=== PATIENT | female | born 1935 | race Caucasian/White ===

== ENCOUNTER 2017-11-08 02:15 | Emergency (ER) | payer MEDICARE, OTHER ==
[~2017-11-08 02:15] MED LIST: LORA-392 PO; LORTA5 PO; OXYBXL10 PO; PREG75 PO; TRIH2 PO; VITA100018 PO; ZOVI800T13 PO
[2017-11-08 02:20] VITALS: BP_SYST 137; PULSE 78; RESP 22; TEMP 98.5; O2SAT 99
[2017-11-08] MEDS ORDERED: ONDANSETRON HCL 4 MG/2 ML VIAL IV PUSH ONE (02:30)
[2017-11-08] MEDS ORDERED: MORPHINE SULFATE 2 MG/ML INJ IV PUSH ONE (02:30)
--- NOTE | 2017-11-08 02:37 | PD ---
HPI Chief Complaint: Musculoskeletal Complaint Time Seen by Provider: 02:30 Travel History International Travel<30 days: No Contact w/Intl Traveler<30days: No Traveled to known affect area: No History of Present Illness HPI 82-year-old female presents to the emergency department by EMS transport from home for bilateral hip pain. According to the patient 2 days ago showed a non- syncopal slip and fall landing on her buttock. Patient experienced bilateral hip pain at that time right worse than left. Patient was able to get up and ambulate subsequently with her walker. Patient denies uses a walker for ambulation. Reportedly over the last 48 hours symptoms have worsened. Patient complains of severe pain affecting her right hip. Patient has a 24-hour caregiver and repeatedly asked her caregiver because she is afraid to be alone. Patient is very anxious. Patient is a . Patient has Parkinson's disease. Patient tried to take ibuprofen prior to arrival to the emergency department reportedly but was unable to swallow the pills that she was so upset. PFSH Past Medical History Narrative Medical Anemia arthritis Parkinson's disease thoracic compression fracture old sacral fracture anxiety disorder; no tobacco use; nursing notes reviewed Hx Anticoagulant Therapy: No Arthritis: Yes Asthma: No Autoimmune Disease: No Anxiety: Yes ('S HEALTH ) Depression: No Heart Rhythm Problems: No Cancer: No Cardiovascular Problems: No High Cholesterol: No Chemotherapy: No Chest Pain: No Congestive Heart Failure: No COPD: No Cerebrovascular Accident: No Diabetes: No Endocrine: No GERD: No Genitourinary: No Hiatal Hernia: No Immune Disorder: No Kidney Stones: No Musculoskeletal: Yes Neurologic: Yes (TREMORS RIGHT HAND, PARKINSON) Parkinson's Disease: Yes Psychiatric: No Reproductive: No Respiratory: No Immunizations Current: Yes Migraines: No Radiation Therapy: No Renal Failure: No Seizures: No Sickle Cell Disease: No Sleep Apnea: No Thyroid Disease: No Ulcer: No Menopausal: Yes : 4 Para: 4 Past Surgical History Abdominal Surgery: No AICD: No Arteriovenous Shunt: No Cardiac Surgery: No Ear Surgery: No Endocrine Surgery: No Eye Surgery: No Genitourinary Surgery: No Gynecologic Surgery: Yes (D&C) Hysterectomy: No Insulin Pump: No Joint Replacement: No Oral Surgery: No Pacemaker: No Thoracic Surgery: No Other Surgery: Yes Social History Alcohol Use: No Tobacco Use: No Substance Use: No Allergies-Medications (Allergen,Severity, Reaction): Coded Allergies: *MDRO Multi-Drug Resistant Organism (Verified Adverse Reaction, Unknown, ) E. coli ESBL (urine) - 10/2014 Reported Meds & Prescriptions Reported Meds & Active Scripts Active Percocet (Oxycodone-Acetaminophen) 5-325 mg Tab 0.5-1 Tab PO Q6H PRN Zofran Odt (Ondansetron Odt) 4 Mg Tab 4 Mg SL Q6HR PRN Reported Trihexyphenidyl (Trihexyphenidyl HCl) 2 Mg Tab 2 Mg PO BID Ativan (Lorazepam) 0.5 Mg Tab 0.5 Mg PO Q6H PRN Review of Systems Except as stated in HPI: all other systems reviewed are Neg Physical Exam Narrative GENERAL: Elderly female with tremor appears anxious sitting upright on exam stretcher asking repetitively for her 24-hour [employer] [place] SKIN: Warm and dry. HEAD: Normocephalic. Atraumatic. EYES: No scleral icterus. No injection or drainage. NECK: Supple, trachea midline. No JVD or lymphadenopathy. CARDIOVASCULAR: Regular rate and rhythm without murmurs, gallops, or rubs. RESPIRATORY: Breath sounds equal bilaterally. No accessory muscle use. GASTROINTESTINAL: Abdomen soft, non-tender, nondistended. MUSCULOSKELETAL: No cyanosis, or edema. No external or internal rotation and shortening, left lower extremity able to perform hip flexion and knee flexion and dorsalis pedis pulses 2+ to palpation right lower extremity has limited hip flexion he flexion secondary to pain. BACK: Nontender without obvious deformity. No CVA tenderness. Data Data Last Documented VS Vital Signs Date Time Temp Pulse Resp B/P (MAP) Pulse Ox O2 Delivery O2 Flow Rate FiO2 11/08/17 03:30 74 16 98/64 (75) 97 Room Air 11/08/17 02:20 98.5 Orders Orders Hip, Uni(Ap&Lat) W Ap Pelvis (11/08/17 ) ^ Saline Lock (11/08/17 02:30) Ondansetron Inj (Zofran Inj) (11/08/17 02:30) Morphine Inj (Morphine Inj) (11/08/17 02:30) Ketorolac Inj (Toradol Inj) (11/08/17 04:00) Ed Discharge Order (11/08/17 03:50) MDM Medical Decision Making Medical Screen Exam Complete: Yes Emergency Medical Condition: Yes Medical Record Reviewed: Yes Interpretation(s) right hip and pelvis xr: FINDINGS: No fracture is seen. The right hip joint is normally aligned. There is narrowing of the left hip joint. The bones are osteopenic. CONCLUSION: No fracture is seen. Derek Treviño MD on November 08, 2017 at 3:27 Board Certified Radiologist. This report was verified electronically. Differential Diagnosis Contusion fracture subluxation Narrative Course IV access obtained imaging studies ordered patient administered Zofran 4 mg IV and morphine sulfate 2 mg IV Patient remains anxious caregivers are at bedside patient informed of imaging results and is stable for outpatient management. Pain is improved. Sepsis Criteria SIRS Criteria (2 or more): WBC > 59055, < 4000 or > 10% bands Diagnosis Primary Impression: Contusion of hip, right Qualified Codes: S70.01XA - Contusion of right hip, initial encounter Additional Impression: Contusion of left hip Qualified Codes: S70.02XA - Contusion of left hip, initial encounter Referrals: Primary Care Physician call for appointment Patient Instructions: General Instructions, Narcotic given in the ED Additional Instructions: Follow-up with your primary care provider call office in a.m. to schedule follow -up appointment Return to the emergency department as needed May take ibuprofen/Advil/Motrin as tolerated 400 mg as often as every 6 hours to 8 hours for pain associated with inflammation May use moist heat to the areas for comfort purposes Prescription narcotic Percocet baby taken half tablet or 1 tablet as often as every 6 hours as needed for severe pain greater than 5/10 in intensity; be aware that narcotics can increased risk for fall, impaired judgment, and cause constipation (may take stool softener if using narcotic pain medication). Take medication as prescribed as needed for nausea and/or vomiting Increase fluid hydration Med/Other Pt SpecificInfo: Prescription(s) given Scripts Oxycodone-Acetaminophen (Percocet) 5-325 mg Tab 0.5-1 TAB PO Q6H Y for PAIN, #7 TAB 0 Refills Prov: Beatriz Sheth MD 11/08/17 Ondansetron Odt (Zofran Odt) 4 Mg Tab 4 MG SL Q6HR Y for Nausea/Vomiting, #10 TAB 0 Refills Prov: Beatriz Sheth MD 11/08/17 Disposition: 01 DISCHARGE HOME Condition: Stable Beatriz Sheth MD Nov 08, 2017 02:36
[2017-11-08] MEDS ORDERED: LORA-392 PO (02:53)
[2017-11-08] MEDS ORDERED: TRIH2 PO (02:53)
[2017-11-08 03:30] VITALS: BP 98/64; PULSE 74; RESP 16; O2SAT 97
--- NOTE | 2017-11-08 03:32 | RADRPT ---
EXAM DATE/TIME: 11/08/2017 02:42 [facility] COMPARISON: No previous studies available for comparison. INDICATIONS : Trauma, fall. Right hip pain. MEDICAL HISTORY : None. SURGICAL HISTORY : None. ENCOUNTER: Initial ACUITY: 1 day PAIN SCORE: 8/10 LOCATION: Right hip. FINDINGS: No fracture is seen. The right hip joint is normally aligned. There is narrowing of the left hip join t. The bones are osteopenic. CONCLUSION: No fracture is seen. Derek Treviño MD on November 08, 2017 at 3:27 Board Certified Radiologist. This report was verified electronically.
[2017-11-08] MEDS ORDERED: PERC5TAB12 PO (03:41)
[2017-11-08] MEDS ORDERED: ZOFR4TAB3 SL (03:41)
[2017-11-08] MEDS ORDERED: KETOROLAC TROMETHAMINE 30 MG/ML (IVP) VIAL IV PUSH ONE (04:00)
[2017-11-08 04:23] VITALS: BP 99/57
[2017-11-13] MEDS ORDERED: OXYC1TAB36 PO (10:20)
[2017-11-13] MEDS ORDERED: LACT10SO PO (10:20)
[2017-11-13] MEDS ORDERED: HOSP BED1 (10:22)
== END 2017-11-08 04:25 | disposition home or self-care (01) ==
LOC: PHED 02:15
DX: S70.01XA Contusion of right hip, initial encounter (principal); S70.02XA Contusion of left hip, initial encounter; G20 Parkinson's disease; F41.9 Anxiety disorder, unspecified; W01.0XXA Fall on same level from slipping, tripping and stumbling without subsequent striking against object, initial encounter
CPT/HCPCS: 73502; 96374; 96375; 99284; J1885; J2270; J2405

== ENCOUNTER 2017-11-17 08:49 | Inpatient (IN) | payer MEDICARE, OTHER ==
[2017-11-17] VITALS (7 sets, daily range): BP systolic 122–148; BP diastolic 65–76; PULSE 69–98; RESP 18–20; TEMP 98.4–99.2; O2SAT 92–98
[~2017-11-17] VITALS: Ht 170.2 cm; Wt 60.0 kg
[~2017-11-17 08:49] MED LIST changes: +HOSP BED1; +LACT10SO PO; -LORTA5 PO; -OXYBXL10 PO; +OXYC1TAB36 PO; -PREG75 PO; -VITA100018 PO; -ZOVI800T13 PO
[2017-11-17] MEDS ORDERED: FURO20TA PO (09:11)
[2017-11-17] MEDS ORDERED: DEXA4TAB PO (09:11)
[2017-11-17] MEDS ORDERED: OXYB5TAB8 PO (09:11)
[2017-11-17] MEDS ORDERED: LORA0.5T PO (09:13)
[2017-11-17 09:38] LABS: AUTOMATED NEUTROPHIL # 10.2 TH/MM3 (1.8-7.7); BASOPHIL % 0.2 % (0.0-2.0); EOSINOPHIL # 0.1 TH/MM3 (0-0.4); EOSINOPHIL % 0.4 % (0.0-4.0); HEMATOCRIT 41.4 % (35.0-46.0); HEMOGLOBIN 14.2 GM/DL (11.6-15.3); LYMPH % 19.1 % (9.0-44.0); LYMPHOCYTE # 2.7 TH/MM3 (1.0-4.8); MEAN CORPUSCULAR HEMOGLOBIN 30.5 PG (27.0-34.0); MEAN CORPUSCULAR HGB CONC 34.2 % (32.0-36.0); MEAN PLATELET VOLUME 7.7 FL (7.0-11.0); MONO % 8.8 % (0.0-8.0); MONOCYTE # 1.3 TH/MM3 (0-0.9); NEUT % 71.5 % (16.0-70.0); PLATELET COUNT 350 TH/MM3 (150-450); RED BLOOD COUNT 4.65 MIL/MM3 (4.00-5.30); RED CELL DISTRIBUTION WIDTH 13.9 % (11.6-17.2); WHITE BLOOD COUNT 14.3 TH/MM3 (4.0-11.0)
[2017-11-17 09:51] LABS: AMORPHOUS SEDIMENT, URINE OCC; BACTERIA, URINE MANY /hpf; BILIRUBIN, URINE NEG (NEG); BLOOD, URINE SMALL (NEG); GLUCOSE,URINE NEG (NEG); HYALINE CAST, URINE 3 /lpf (RARE); KETONE, URINE NEG (NEG); MUCUS URINE FEW /lpf (OCC); NITRITE,URINE POS (NEG); PH, URINE 6.5 (5.0-8.5); SQUAMOUS EPITHELIAL CELL URINE 2 /hpf (0-5); URINE COLOR YELLOW (YELLW/STRAW); URINE LEUKOCYTE ESTERASE MOD (NEG)
--- NOTE | 2017-11-17 09:53 | RADRPT ---
EXAM DATE/TIME: 11/17/2017 09:32 [facility] COMPARISON: CHEST SINGLE AP, May 30, 2015, 8:48. INDICATIONS : Fever. MEDICAL HISTORY : Parkinson's SURGICAL HISTORY : D and C, recent kyphoplasty ENCOUNTER: Initial ACUITY: 1 day PAIN SCORE: Non-responsive. LOCATION: Bilateral chest FINDINGS: Single AP view of the chest. Lung volumes are low. Cardiac silhouette is mildly prominent but unchang ed. Patchy bilateral lower lung zone opacity likely indicating atelectasis. No evidence of pleural ef fusion or pneumothorax. Evidence of prior kyphoplasty/vertebroplasty at the thoracolumbar junction. CONCLUSION: Mild patchy bilateral lower lung zone opacity likely representing atelectasis. Garo Stinson MD on November 17, 2017 at 9:49 Board Certified Radiologist. This report was verified electronically.
[2017-11-17 09:57] LABS: ALBUMIN 3.1 GM/DL (3.4-5.0); ALT (GPT) 24 U/L (10-53); AST (GOT) 36 U/L (15-37); BICARBONATE 26.3 MEQ/L (21.0-32.0); BLOOD UREA NITROGEN 19 MG/DL (7-18); CALCIUM 9.1 MG/DL (8.5-10.1); CHLORIDE 106 MEQ/L (98-107); CREATININE 0.73 MG/DL (0.50-1.00); GLOMERULAR FILTRATION RATE 76 ML/MIN (>89); GLUCOSE,RANDOM 104 MG/DL (74-106); SODIUM (NA) 140 MEQ/L (136-145)
[2017-11-17 10:00] LABS: ALKALINE PHOSPHATASE 147 U/L (45-117); TOTAL BILIRUBIN ADULT 0.6 MG/DL (0.2-1.0); TOTAL PROTEIN 7.6 GM/DL (6.4-8.2)
--- NOTE | 2017-11-17 11:26 | PD ---
HPI Chief Complaint: Fever Time Seen by Provider: 09:06 Travel History International Travel<30 days: No Contact w/Intl Traveler<30days: No Traveled to known affect area: No History of Present Illness HPI This is an 82-year-old female with history of Parkinson's disease, chronic low back pain, who presents here from home with reported fever and worsening shaking. The patient apparently lives at home and has home health nursing. According to the [facility], home health nurse noted an axillary temperature of 101 on 2 separate episodes. The patient is unable to give good history. She denies any pain or discomfort. There are no other complaints time of my examination. It is important noted that she was just recently admitted and discharged for exacerbation of low back pain after a fall. PFSH Past Medical History Hx Anticoagulant Therapy: No Arthritis: Yes Asthma: No Autoimmune Disease: No Anxiety: Yes Depression: No Heart Rhythm Problems: No Cancer: No Cardiovascular Problems: No High Cholesterol: No Chemotherapy: No Chest Pain: No Congestive Heart Failure: No COPD: No Cerebrovascular Accident: No Diabetes: No Diminished Hearing: No Endocrine: No Gastrointestinal Disorders: No GERD: No Genitourinary: No Headaches: No Hiatal Hernia: No Heparin Induced Thrombocytopen: No Hypertension: No Immune Disorder: No Implanted Vascular Access Dvce: No Kidney Stones: No Musculoskeletal: Yes Neurologic: Yes (TREMORS RIGHT HAND, PARKINSON) Parkinson's Disease: Yes (recent dx) Psychiatric: No Reproductive: No Respiratory: No Immunizations Current: Yes Migraines: No Radiation Therapy: No Renal Failure: No Seizures: No Sickle Cell Disease: No Sleep Apnea: No Thyroid Disease: No Ulcer: No ?: Not Menopausal: Yes : 4 Para: 4 Past Surgical History Abdominal Surgery: No AICD: No Arteriovenous Shunt: No Cardiac Surgery: No Ear Surgery: No Endocrine Surgery: No Eye Surgery: No Genitourinary Surgery: No Gynecologic Surgery: Yes (D&C) Hysterectomy: No Insulin Pump: No Joint Replacement: No Neurologic Surgery: No Oral Surgery: No Pacemaker: No Thoracic Surgery: No Other Surgery: Yes Social History Alcohol Use: No Tobacco Use: No Substance Use: No Allergies-Medications (Allergen,Severity, Reaction): Coded Allergies: *MDRO Multi-Drug Resistant Organism (Verified Adverse Reaction, Unknown, ) E. coli ESBL (urine) - 10/2014 Reported Meds & Prescriptions Reported Meds & Active Scripts Active Hospital Bed - Electric 1 Ea Ea Ea .ROUTE DIRECTED Oxycodone-Acetaminophen 10-325 (Oxycodone HCl/Acetaminophen) 10 Mg-325 Mg Tablet 1 Tab PO Q6H PRN Reported Lorazepam 0.5 Mg Tab 0.5 Mg PO DAILY PRN Dexamethasone 4 Mg Tab 4 Mg PO BID Furosemide 20 Mg Tab 20 Mg PO DAILY Ditropan (Oxybutynin Chloride) 5 Mg Tab 5 Mg PO Q12HR Trihexyphenidyl (Trihexyphenidyl HCl) 2 Mg Tab 2 Mg PO BID Review of Systems ROS Limitations: Poor Historian (patient extremely poor historian) Except as stated in HPI: all other systems reviewed are Neg General / Constitutional: Positive: Fever, Chills HENT: No: Headaches, Neck Pain Cardiovascular: No: Chest Pain or Discomfort, Palpitations Respiratory: No: Cough, Shortness of Breath Gastrointestinal: No: Nausea, Vomiting, Abdominal Pain Genitourinary: No: Frequency, Dysuria Musculoskeletal: Positive: Pain (chronic low back pain), No: Weakness Neurologic: Positive: Other (increased neurologic tremors on top of history of Parkinson's), No: Headache Physical Exam Narrative GENERAL: Well-nourished, well-developed patient, in no acute respiratory distress. The patient offers minimal history. She is noted to have tremors consistent with her Parkinson's. SKIN: Focused skin assessment warm/dry. No lesions. HEAD: Normocephalic/atraumatic. EYES: No scleral icterus. No injection or drainage. NECK: Supple, trachea midline. CARDIOVASCULAR: Regular rate and rhythm without murmurs, gallops, or rubs. RESPIRATORY: Breath sounds equal bilaterally. No accessory muscle use. Decreased respiratory effort. GASTROINTESTINAL: Abdomen soft, non-tender, nondistended. No rebound or guarding. MUSCULOSKELETAL: No cyanosis, or edema. NEUROLOGICAL: Awake and confused. Cranial nerves II through XII intact. Motor and sensory grossly within normal limits. Five out of 5 muscle strength in all muscle groups. Weak speech. Data Data Last Documented VS Vital Signs Date Time Temp Pulse Resp B/P (MAP) Pulse Ox O2 Delivery O2 Flow Rate FiO2 11/17/17 10:05 98.7 98 18 142/76 (98) 98 Nasal Cannula 2.00 Orders Orders Sepsis Workup Initiated (11/17/17 ) Complete Blood Count With Diff (11/17/17 09:09) Comprehensive Metabolic Panel (11/17/17 09:09) Lactic Acid Sepsis Protocol (11/17/17 09:09) Urinalysis - C+S If Indicated (11/17/17 09:09) Blood Culture (11/17/17 09:09) Chest, Single Ap (11/17/17 09:09) Blood Glucose (11/17/17 09:09) Ecg Monitoring (11/17/17 09:09) Iv Access Insert/Monitor (11/17/17 09:09) Cath For Specimen (11/17/17 09:09) Oximetry (11/17/17 09:09) Oxygen Administration (11/17/17 09:09) Influenzae A/B Antigen (11/17/17 09:09) Urine Culture (11/17/17 09:27) Admit Order (Ed Use Only) (11/17/17 10:59) Labs Laboratory Tests Test 11/17/17 09:15 11/17/17 09:27 White Blood Count 14.3 TH/MM3 Red Blood Count 4.65 MIL/MM3 Hemoglobin 14.2 GM/DL Hematocrit 41.4 % Mean Corpuscular Volume 89.0 FL Mean Corpuscular Hemoglobin 30.5 PG Mean Corpuscular Hemoglobin Concent 34.2 % Red Cell Distribution Width 13.9 % Platelet Count 350 TH/MM3 Mean Platelet Volume 7.7 FL Neutrophils (%) (Auto) 71.5 % Lymphocytes (%) (Auto) 19.1 % Monocytes (%) (Auto) 8.8 % Eosinophils (%) (Auto) 0.4 % Basophils (%) (Auto) 0.2 % Neutrophils # (Auto) 10.2 TH/MM3 Lymphocytes # (Auto) 2.7 TH/MM3 Monocytes # (Auto) 1.3 TH/MM3 Eosinophils # (Auto) 0.1 TH/MM3 Basophils # (Auto) 0.0 TH/MM3 CBC Comment DIFF FINAL Differential Comment Blood Urea Nitrogen 19 MG/DL Creatinine 0.73 MG/DL Random Glucose 104 MG/DL Total Protein 7.6 GM/DL Albumin 3.1 GM/DL Calcium Level 9.1 MG/DL Alkaline Phosphatase 147 U/L Aspartate Amino Transf (AST/SGOT) 36 U/L Alanine Aminotransferase (ALT/SGPT) 24 U/L Total Bilirubin 0.6 MG/DL Sodium Level 140 MEQ/L Potassium Level 3.7 MEQ/L Chloride Level 106 MEQ/L Carbon Dioxide Level 26.3 MEQ/L Anion Gap 8 MEQ/L Estimat Glomerular Filtration Rate 76 ML/MIN Lactic Acid Level 1.0 mmol/L Urine Color YELLOW Urine Turbidity HAZY Urine pH 6.5 Urine Specific [place] 1.018 Urine Protein 30 mg/dL Urine Glucose (UA) NEG mg/dL Urine Ketones NEG mg/dL Urine Occult Blood SMALL Urine Nitrite POS Urine Bilirubin NEG Urine Urobilinogen LESS THAN 2.0 MG/DL Urine Leukocyte Esterase MOD Urine RBC 2 /hpf Urine WBC 29 /hpf Urine Squamous Epithelial Cells 2 /hpf Urine Amorphous Sediment OCC Urine Bacteria MANY /hpf Urine Hyaline Casts 3 /lpf Urine Mucus FEW /lpf Microscopic Urinalysis Comment CATH-CULTURE IND MDM Medical Decision Making Medical Screen Exam Complete: Yes Emergency Medical Condition: Yes Differential Diagnosis Pneumonia versus UTI versus sepsis versus metabolic derangement Narrative Course 82-year-old female presents from home at the request for home health nurse for fever and rule out sepsis. The patient has UTI. She's also noted to be dehydrated. She been started on I V fluids. She's been given 1 g of Rocephin. Case is been discussed with the [facility] hospitalists will bring the patient under observation. I believe this patient will likely need to be evaluated for possible residential placement. This was discussed with the hospitalist. Diagnosis Primary Impression: Urinary tract infection Additional Impressions: Acute kidney injury worsening tremors History of chronic back pain Parkinsons disease Admitting Information Admitting Physician Requests: Observation Van Albarran MD Nov 17, 2017 11:26
[2017-11-17] MEDS ORDERED: cefTRIAXone INJ 1,000 MG in SODIUM CHLORIDE 0.9% INJ 100 ML IV ONE (12:00)
[2017-11-17] MEDS ORDERED: SODIUM CHLOR 0.9% 1000 ML INJ 1,000 ML IV SCH (12:00)
[2017-11-17] MEDS ORDERED: LORazepam 2 MG/ML VIAL IV PUSH ONE (12:00)
[2017-11-17] MEDS ORDERED: LORazepam 0.5 MG TAB PO PRN (13:00)
[2017-11-17] MEDS ORDERED: ONDANSETRON HCL 4 MG/2 ML VIAL IV PUSH PRN (13:00)
[2017-11-17] MEDS ORDERED: MAGNESIUM HYDROXIDE SUSP 30 ML CUP PO PRN (13:00)
[2017-11-17] MEDS ORDERED: ACETAMINOPHEN/HYDROcodone 325 MG/5 MG TAB PO PRN ×2 (13:00)
[2017-11-17] MEDS ORDERED: SODIUM CHLOR 0.9% 1000 ML INJ 1,000 ML IV ONE (13:00)
[2017-11-17] MEDS ORDERED: ACETAMINOPHEN 325 MG TAB PO PRN (13:00)
--- NOTE | 2017-11-17 13:17 | HHI.HP ---
HPI Service [facility] Primary Care Physician Unknown Admission Diagnosis uti, dehydration, worsening tremors Diagnoses: (1) Impaired mobility Diagnosis: Principal (2) Urinary tract infection Diagnosis: Principal Chief Complaint: impaired mobility Travel History International Travel<30 Days: No Contact w/Intl Traveler <30 Da: No Traveled to Known Affected Are: No History of Present Illness patient is a 82 y/o female with history of recent fall- with L1 fracture- s/p Kyphoplasty about a week ago, with history of Parkinson's disease who was brought to ER with fever. the patient is not a good historian and most of the information was obtained from the ER document and the patient's daughters at the bedside. the family said that she was doing fairly fine on the days of discharge a few days ago after she had her Kyphoplasty. however she had constipation at the time which didn't resolve till yesterday when the family had to do the disimpaction.there's a report of fever spike at home. since the time of discharge she's been feeling weaker and the family noticed on and off confusional episodes which they relate to her medical regimen. the family said that it seems that her weakness has been getting worse and a couple of falls recently- she was referred to however she missed the appointment because of the fall.her back pain at the time of my evaluation was mild. she denies any abdominal pain or nausea. she was afebrile at the time of presentation to ER.the family said that she was on hospice for less than a day and that service was discontinued. Review of Systems Constitutional: COMPLAINS OF: Fever, DENIES: Weight loss, Chills, Night Sweats Eyes: DENIES: Blurred vision, Diplopia, Vision loss, Double Vision Ears, nose, mouth, throat: DENIES: Tinnitus, Vertigo, Throat pain, Epistaxis Respiratory: DENIES: Apneas, Cough, Snoring, Wheezing, Hemoptysis, Sputum production, Shortness of breath Cardiovascular: DENIES: Chest pain, Palpitations, Syncope, Dyspnea on Exertion , PND, Lower Extremity Edema, Orthopnea, Claudication Gastrointestinal: COMPLAINS OF: Constipation, DENIES: Abdominal pain, Black stools, Bloody stools, Diarrhea, Nausea, Vomiting, Difficulty Swallowing, Anorexia Genitourinary: DENIES: Urinary frequency, Urgency, Hematuria, Dysuria Musculoskeletal: COMPLAINS OF: Back pain, DENIES: Joint pain, Muscle aches, Stiffness, Joint Swelling Integumentary: DENIES: Rash Neurologic: COMPLAINS OF: Abnormal gait, DENIES: Headache, Localized weakness, Paresthesias, Seizures, Speech Problems, Tremor, Poor Balance Psychiatric: DENIES: Anxiety, Confusion, Mood changes, Depression, Hallucinations, Agitation, Suicidal Ideation, Homicidal Ideation, Delusions Past Family Social History Past Medical History parkinson's disease/ L1 fracture Past Surgical History Kyphoplasty/ knee surgery. Reported Medications Lorazepam 0.5 Mg Tab 0.5 Mg PO DAILY PRN Dexamethasone 4 Mg Tab 4 Mg PO BID Furosemide 20 Mg Tab 20 Mg PO DAILY Ditropan (Oxybutynin Chloride) 5 Mg Tab 5 Mg PO Q12HR Trihexyphenidyl (Trihexyphenidyl HCl) 2 Mg Tab 2 Mg PO BID Allergies: Coded Allergies: *MDRO Multi-Drug Resistant Organism (Verified Adverse Reaction, Unknown, ) E. coli ESBL (urine) - 10/2014 Active Ordered Medications Inpatient Medications Ceftriaxone Sodium 1000 mg/ Sodium Chloride 100 ml @ 200 mls/hr ONCE ONCE IV Last administered on 11/17/17at 12:20; Start 11/17/17 at 12:00; Stop 11/17/17 at 12:29; Status DC Lorazepam (Ativan Inj) 1 mg ONCE ONCE IV PUSH Last administered on 11/17/17at 12:21; Start 11/17/17 at 12:00; Stop 11/17/17 at 12:01; Status DC Sodium Chloride 1,000 ml @ 100 mls/hr Q10H IV Last administered on 11/17/17at 12:20; Start 11/17/17 at 12:00 Family History not relevant to this admission. Social History lives with the family. no smoking or drinking. Physical Exam Vital Signs Vital Signs Date Time Temp Pulse Resp B/P (MAP) Pulse Ox O2 Delivery O2 Flow Rate FiO2 11/17/17 12:30 98.4 69 18 122/76 (91) 98 Nasal Cannula 2.00 11/17/17 10:05 98.7 98 18 142/76 (98) 98 Nasal Cannula 2.00 11/17/17 09:13 18 95 Nasal Cannula 2.00 11/17/17 09:13 95 Nasal Cannula 2.00 11/17/17 09:03 93 18 96 Room Air 11/17/17 09:02 98.7 92 18 148/68 (94) 95 Nasal Cannula 2.00 Physical Exam GENERAL: This is a well-nourished, well-developed patient, in no apparent distress. SKIN: No rashes, ecchymoses or lesions. Cool and dry. HEAD: Atraumatic. Normocephalic. No temporal or scalp tenderness. EYES: Pupils equal round and reactive. Extraocular motions intact. No scleral icterus. No injection or drainage. ENT: Nose without bleeding, purulent drainage or septal hematoma. Throat without erythema, tonsillar hypertrophy or exudate. Uvula midline. Airway patent. NECK: Trachea midline. No JVD or lymphadenopathy. Supple, nontender, no meningeal signs. CARDIOVASCULAR: Regular rate and rhythm without murmurs, gallops, or rubs. RESPIRATORY: Clear to auscultation. Breath sounds equal bilaterally. No wheezes , rales, or rhonchi. GASTROINTESTINAL: Abdomen soft, non-tender, nondistended. No hepato-splenomegaly , or palpable masses. No guarding. MUSCULOSKELETAL: Extremities without clubbing, cyanosis, or edema. No joint tenderness, effusion, or edema noted. No calf tenderness. Negative Homans sign bilaterally. NEUROLOGICAL: Awake and alert. Cranial nerves II through XII intact. Motor and sensory grossly within normal limits. Five out of 5 muscle strength in all muscle groups. Normal speech. Laboratory Laboratory Tests Test 11/17/17 09:15 11/17/17 09:27 White Blood Count 14.3 Red Blood Count 4.65 Hemoglobin 14.2 Hematocrit 41.4 Mean Corpuscular Volume 89.0 Mean Corpuscular Hemoglobin 30.5 Mean Corpuscular Hemoglobin Concent 34.2 Red Cell Distribution Width 13.9 Platelet Count 350 Mean Platelet Volume 7.7 Neutrophils (%) (Auto) 71.5 Lymphocytes (%) (Auto) 19.1 Monocytes (%) (Auto) 8.8 Eosinophils (%) (Auto) 0.4 Basophils (%) (Auto) 0.2 Neutrophils # (Auto) 10.2 Lymphocytes # (Auto) 2.7 Monocytes # (Auto) 1.3 Eosinophils # (Auto) 0.1 Basophils # (Auto) 0.0 CBC Comment DIFF FINAL Differential Comment Blood Urea Nitrogen 19 Creatinine 0.73 Random Glucose 104 Total Protein 7.6 Albumin 3.1 Calcium Level 9.1 Alkaline Phosphatase 147 Aspartate Amino Transf (AST/SGOT) 36 Alanine Aminotransferase (ALT/SGPT) 24 Total Bilirubin 0.6 Sodium Level 140 Potassium Level 3.7 Chloride Level 106 Carbon Dioxide Level 26.3 Anion Gap 8 Estimat Glomerular Filtration Rate 76 Lactic Acid Level 1.0 Urine Color YELLOW Urine Turbidity HAZY Urine pH 6.5 Urine Specific [place] 1.018 Urine Protein 30 Urine Glucose (UA) NEG Urine Ketones NEG Urine Occult Blood SMALL Urine Nitrite POS Urine Bilirubin NEG Urine Urobilinogen LESS THAN 2.0 Urine Leukocyte Esterase MOD Urine RBC 2 Urine WBC 29 Urine Squamous Epithelial Cells 2 Urine Amorphous Sediment OCC Urine Bacteria MANY Urine Hyaline Casts 3 Urine Mucus FEW Microscopic Urinalysis Comment CATH-CULTURE IND Date/Time Source Procedure Growth Status 11/17/17 09:05 Blood Peripheral Aerobic Blood Culture Pending Received 11/17/17 09:05 Blood Peripheral Anaerobic Blood Culture Pending Received 11/17/17 12:11 Nasal Aspirate Influenza Types A,B Antigen (SANTOS) - Final NEGATIVE FOR FLU A AND B ANTIGEN.... Complete 11/17/17 09:27 Urine Catheterized Urine Urine Culture Pending Received Result Diagram: 11/17/17 0915 11/17/17 0915 Imaging Last Impressions Chest X-Ray 11/17/17 0909 Signed Impressions: Service Date/Time: October 09:32 - CONCLUSION: Mild patchy bilateral lower lung zone opacity likely representing atelectasis. Garo Stinson MD Caprini VTE Risk Assessment Caprini VTE Risk Assessment: Mod/High Risk (score >= 2) Caprini Risk Assessment Model Point Value = 1 Point Value = 2 Point Value = 3 Point Value = 5 Age 41-60 Minor surgery BMI > 25 kg/m2 Swollen legs Varicose veins or History of unexplained or recurrent spontaneous Oral contraceptives or hormone replacement Sepsis (< 1 month) Serious lung disease, including pneumonia (< 1 month) Abnormal pulmonary function Acute myocardial infarction Congestive heart failure (< 1 month) History of inflammatory bowel disease Medical patient at bed rest Age 61-74 Arthroscopic surgery Major open surgery (> 45 min) Laparoscopic surgery (> 45 min) Malignancy Confined to bed (> 72 hours) Immobilizing plaster cast Central venous access Age >= 75 History of VTE Family history of VTE Factor V Leiden Prothrombin [id number] Lupus anticoagulant Anticardiolipin antibodies Elevated serum homocysteine Heparin-induced thrombocytopenia Other congenital or acquired thrombophilia Stroke (< 1 month) Elective arthroplasty Hip, pelvis, or leg fracture Acute spinal cord injury (< 1 month) Prophylaxis Regimen Total Risk Factor Score Risk Level Prophylaxis Regimen 0-1 Low Early ambulation 2 Moderate Order ONE of the following: *Sequential Compression Device (SCD) *Heparin 5000 units SQ BID 3-4 Higher Order ONE of the following medications: *Heparin 5000 units SQ TID *Enoxaparin/Lovenox 40 mg SQ daily (WT < 150 kg, CrCl > 30 mL/min) *Enoxaparin/Lovenox 30 mg SQ daily (WT < 150 kg, CrCl > 10-29 mL/min) *Enoxaparin/Lovenox 30 mg SQ BID (WT < 150 kg, CrCl > 30 mL/min) AND/OR *Sequential Compression Device (SCD) 5 or more Highest Order ONE of the following medications: *Heparin 5000 units SQ TID (Preferred with Epidurals) *Enoxaparin/Lovenox 40 mg SQ daily (WT < 150 kg, CrCl > 30 mL/min) *Enoxaparin/Lovenox 30 mg SQ daily (WT < 150 kg, CrCl > 10-29 mL/min) *Enoxaparin/Lovenox 30 mg SQ BID (WT < 150 kg, CrCl > 30 mL/min) AND *Sequential Compression Device (SCD) Assessment and Plan Assessment and Plan A/P - worsening weakness/ impaired mobility with recent falls with history of Parkinson's disease fall precautions- consult neurology ( patient has been referred to ) - consult PT and case management. resume home meds. -recent fall with L1 fracture/ s/p Kyphoplasty continue with pain control- PT evaluation as noted above. -UTI; continue with IV Rocephin; follow the cultures and adjust the antibiotic regimen accordingly. -constipation; will start on scheduled colace and prn milk of magnesia- will monitor the response -DVT prophylaxis with SCD's Code Status full code per my d/w the family. Discussed Condition With ER physician, the patient and her family at the bedside. Problem Qualifiers (1) Urinary tract infection: Laya Jewell MD Nov 17, 2017 13:17
[2017-11-17] MEDS: CARBIDOPA/LEVODOPA 25 MG/100 MG TAB PO SCH (16:16)
[2017-11-17] MEDS ORDERED: LORazepam 2 MG/ML VIAL IV ONE (17:45)
[2017-11-17] MEDS: PYRIDOXINE HCL 50 MG TAB PO SCH (18:03)
--- NOTE | 2017-11-17 18:51 | MB ---
cc: GLEN JOSEPH DATE OF CONSULTATION 11/17/17 HISTORY OF PRESENT ILLNESS This is an 82-year-old woman who I had seen back in 2015. She does see Dr. Buitrago but not for several years evidently. She had a history of Parkinson's disease. Back then she was slumped to the floor, had some shots in her buttocks and hips, low back pain, epidural steroid injections, SI joint injections, had oxycodone and Dilaudid but had not been taking that at that time. She was just on Toradol, Ativan and Augmentin. She was walking with small steps, two person assist. She was able to take larger steps. She had a resting tremor, severe, in both of her upper extremities. Moderate cogwheel rigidity in both uppers more than lowers at that time. Her white count was high. She had a UTI at that time. I believe we put on some Artane for her tremors. We restarted her on Sinemet and she evidently continues on Artane now but not on Sinemet. She has fallen twice in the last month and fractured her L1, recently had some narcotics. She has gone downhill recently and subsequently came into the hospital. She had a fever and worsened tremors. She was living at home. Temperature was 101, as such brought into the hospital. ALLERGIES NO KNOWN DRUG ALLERGIES. Medications 1. Oxycodone 2. Ativan 0.5 q. day, 3. Dexamethasone four b.i.d. 4. Lasix 5. Ditropan 6. Artane 2 mg b.i.d. Current meds 1. Ceftriaxone 2. Artane 3. Ativan 0.5 p.r.n. anxiety 4. Hydrocodone PAST MEDICAL HISTORY 1. L1 fracture, status post kyphoplasty a week ago. 2. Parkinson's disease. SOCIAL HISTORY Not a smoker or a drinker, lives at home. REVIEW OF SYSTEMS In the past, no hypertension, diabetes, hypercholesterolemia, HI, CABG, arrhythmia, renal, hepatic or pulmonary disease, thyroid disease, lupus, ulcer, cancer, seizure, stroke. FAMILY HISTORY Negative for cancer seizure, strokes PHYSICAL EXAMINATION On exam, she has been afebrile here, 122/76, 18, 89. There are no carotid bruits. Heart was regular rhythm. I did not detect a murmur. She is hypophonic. She can tell me the year. The pupils are equal. Visual [place] are full. Face is symmetric. Tongue was midline. She had a severe resting tremor in the right upper extremity more that the left upper extremity and marked increased tone, somewhat cogwheeling, somewhat [place]. Bilateral upper extremities worse on the right than the left. Marked increased tone, somewhat semi spastic on the right lower extremity, more so than the left lower extremity. She has some dystonia with the right foot turning in slightly. The toes are downgoing bilaterally. DTRs are absent at the knees. She is awake and alert, moaning. LABORATORY DATA White count 14,000. CBC is otherwise normal. She had a normal sed rate back in 2013. RPR has been negative in the past. KWABENA has been negative. Her UA today - moderate amount of leuko esterase, 29 white cells. Basic metabolic profile essentially normal. LFTs normal. She had and SPEP in the past that was negative. She had a normal B12 in the past 2014, B6 was low less than two, thiamine was normal back then, methylmalonic acid was normal. TSH was normal in 2015. IMAGING STUDIES She had a chest x-ray today, mild patchy atelectasis. She had a CT scan of her L spine earlier this month - acute compression fracture of L1. MRI of her brain in 2014 was normal. IMPRESSION Parkinson's disease with UTI and worsening. I am going to start her on some Sinemet, see how she does on that and we will check an MRI of the brain, MRI of cervical spine with the fall and make sure there is nothing causing the spasticity in the right side, arm and leg, but it is probably just the Parkinson's has gotten worse. I will have to PT see her. She will probably have to wind up going to rehabilitation. Her UTI is being treated. We will treat her with some B6 and a multivitamin. MD BETTY Loja/ /2:56 PM /6:16 PM
--- NOTE | 2017-11-17 19:17 | RADRPT ---
EXAM DATE/TIME: 11/17/2017 18:30 [facility] COMPARISON: MRI BRAIN W & W/O CONTRAST, November 06, 2014, 14:47. INDICATIONS : CVA. Increasing tremors. MEDICAL HISTORY : Parkinson's. SURGICAL HISTORY : Kyphoplasty. ENCOUNTER: Initial ACUITY: 1 day PAIN SCORE: 0/10 LOCATION: head. TECHNIQUE: Multiplanar, multisequence MRI of the brain was performed without contrast. FINDINGS: CEREBRUM: The ventricles are normal for age. No evidence of midline shift, mass lesion, hemorrhage or acute in farction. No extraaxial fluid collections are seen. The pituitary gland and suprasellar cistern are normal in configuration. WHITE MATTER: No significant signal abnormalities are seen in the white matter. POSTERIOR FOSSA: The cerebellum and brainstem are intact. The 4th ventricle is midline. The cerebellopontine angle is unremarkable. The cerebellar tonsils are normal in position. DIFFUSION IMAGING: No focal areas of restricted diffusion are seen. No evidence of acute infarction. EXTRACRANIAL: The visualized portions of the orbits and paranasal sinuses are unremarkable. CONCLUSION: No acute abnormality demonstrated. Derek Nam MD on November 17, 2017 at 19:14 Board Certified Radiologist. This report was verified electronically.
[2017-11-17] MEDS: TRIHEXYPHENIDYL HCL 2 MG TAB PO SCH (21:53)
[2017-11-17] MEDS: DOCUSATE SODIUM 100 MG CAP PO SCH ×2 (21:53→21:59)
[2017-11-17] MEDS: OXYBUTYNIN CHLORIDE 5 MG TAB PO SCH (21:54)
--- NOTE | 2017-11-17 22:56 | EKG ---
Date Performed: 11/17/2017 Time Performed: 08:57:25 PTAGE: 82 years EKG: POSSIBLE ATRIAL FIBRILLATION, ALTHOUGH DIFFICULT WITH BASELINE ARTIFACT INDETERMINATE AXIS ABNORMAL RHYTHM ECG PREVIOUS TRACING : 11/11/2017 15.03 UNABLE TO COMPARE WITH BASELINE ARTIFACT DOCTOR: Lonnie Vargas Interpretating Date/Time 11/17/2017 22:56:26
[2017-11-18 00:34] VITALS: BP 135/84; PULSE 91; RESP 20; TEMP 99.4; O2SAT 93
--- NOTE | 2017-11-18 07:02 | HHI.PR ---
Objective Vital Signs Date Time Temp Pulse Resp B/P (MAP) Pulse Ox O2 Delivery O2 Flow Rate FiO2 11/18/17 00:34 99.4 91 20 135/84 (101) 93 11/17/17 20:50 99.2 89 20 140/65 (90) 92 11/17/17 16:00 98.9 79 18 143/76 (98) 98 11/17/17 15:13 98.6 87 18 137/74 (95) 93 11/17/17 12:30 98.4 69 18 122/76 (91) 98 Nasal Cannula 2.00 11/17/17 10:05 98.7 98 18 142/76 (98) 98 Nasal Cannula 2.00 11/17/17 09:13 18 95 Nasal Cannula 2.00 11/17/17 09:13 95 Nasal Cannula 2.00 11/17/17 09:03 93 18 96 Room Air 11/17/17 09:02 98.7 92 18 148/68 (94) 95 Nasal Cannula 2.00 Result Diagram: 11/17/17 0915 11/17/17 0915 Objective Remarks did not sleep well lot of anxiety some depression inc toner>left bilat ankles turned in Assessment and Plan Assessment and Plan imp mri brain neg anx dep lexapro may need sleep regiment watch sleep oob PT uti rx try mri c spine today if possible claustrophobic sinemet started Gregory Browning MD Nov 18, 2017 07:02
[2017-11-18 07:41] LABS: AUTOMATED NEUTROPHIL # 9.5 TH/MM3 (1.8-7.7); BASOPHIL % 0.2 % (0.0-2.0); EOSINOPHIL # 0.1 TH/MM3 (0-0.4); EOSINOPHIL % 0.8 % (0.0-4.0); HEMATOCRIT 42.4 % (35.0-46.0); HEMOGLOBIN 14.7 GM/DL (11.6-15.3); LYMPHOCYTE # 2.7 TH/MM3 (1.0-4.8); MEAN CELL VOLUME 88.5 FL (80.0-100.0); MEAN CORPUSCULAR HEMOGLOBIN 30.6 PG (27.0-34.0); MEAN CORPUSCULAR HGB CONC 34.6 % (32.0-36.0); MEAN PLATELET VOLUME 7.7 FL (7.0-11.0); MONO % 9.7 % (0.0-8.0); MONOCYTE # 1.3 TH/MM3 (0-0.9); NEUT % 69.3 % (16.0-70.0); PLATELET COUNT 358 TH/MM3 (150-450); RED BLOOD COUNT 4.79 MIL/MM3 (4.00-5.30); RED CELL DISTRIBUTION WIDTH 13.4 % (11.6-17.2); WHITE BLOOD COUNT 13.7 TH/MM3 (4.0-11.0)
[2017-11-18 08:27] VITALS: BP 142/75; PULSE 68; RESP 18; TEMP 97.9; O2SAT 95
[2017-11-18] MEDS ORDERED: LORazepam 2 MG/ML VIAL IV PUSH ONE (08:30)
[2017-11-18] MEDS: DOCUSATE SODIUM 100 MG CAP PO SCH (08:44)
[2017-11-18] MEDS: OXYBUTYNIN CHLORIDE 5 MG TAB PO SCH ×2 (08:45→21:12)
[2017-11-18] MEDS: PYRIDOXINE HCL 50 MG TAB PO SCH (08:45)
[2017-11-18] MEDS: CARBIDOPA/LEVODOPA 25 MG/100 MG TAB PO SCH ×3 (08:45→16:16)
[2017-11-18] MEDS: MULTIVITAMIN TAB PO SCH (08:45)
[2017-11-18] MEDS: ESCITALOPRAM OXALATE 10 MG TAB PO SCH (08:45)
[2017-11-18] MEDS: TRIHEXYPHENIDYL HCL 2 MG TAB PO SCH ×2 (08:45→23:34)
[2017-11-18 08:46] LABS: BICARBONATE 22.6 MEQ/L (21.0-32.0); CALCIUM 8.7 MG/DL (8.5-10.1); CREATININE 0.5 MG/DL (0.50-1.00)
[2017-11-18] MEDS ORDERED: SENNOSIDES 8.6 MG TAB PO PRN (10:00)
[2017-11-18] MEDS ORDERED: POTASSIUM CHLORIDE 20 MEQ CONTROLLED RELEASE TAB PO ONE (10:00)
[2017-11-18] MEDS: POLYETHYLENE GLYCOL 17 GM PKG PO SCH (10:00)
[2017-11-18] MEDS: DOCUSATE SODIUM 50 MG/SENNA 8.6 MG TAB PO SCH ×2 (11:00→21:12)
[2017-11-18] MEDS: cefTRIAXone INJ 1,000 MG in SODIUM CHLORIDE 0.9% INJ 100 ML IV SCH (11:01)
--- NOTE | 2017-11-18 11:23 | HHI.PR ---
Subjective Remarks Follow-up up encephalopathy and UTI. According to daughter and caregiver, patient still delirious. Patient is awake but confused wants to go home. Objective Vitals Vital Signs Date Time Temp Pulse Resp B/P (MAP) Pulse Ox O2 Delivery O2 Flow Rate FiO2 11/18/17 08:27 97.9 68 18 142/75 (97) 95 11/18/17 00:34 99.4 91 20 135/84 (101) 93 11/17/17 20:50 99.2 89 20 140/65 (90) 92 11/17/17 16:00 98.9 79 18 143/76 (98) 98 11/17/17 15:13 98.6 87 18 137/74 (95) 93 11/17/17 12:30 98.4 69 18 122/76 (91) 98 Nasal Cannula 2.00 I/O 11/17/17 11/17/17 11/17/17 11/18/17 11/18/17 11/18/17 07:00 15:00 23:00 07:00 15:00 23:00 Intake Total 140 ml Balance 140 ml Intake Oral 140 ml # Voids 1 Result Diagram: 11/18/17 0635 11/18/17 0635 Imaging Last Impressions Brain MRI 11/17/17 1503 Signed Impressions: Service Date/Time: October 18:30 - CONCLUSION: No acute abnormality demonstrated. Derek Nam MD Chest X-Ray 11/17/17 0909 Signed Impressions: Service Date/Time: October 09:32 - CONCLUSION: Mild patchy bilateral lower lung zone opacity likely representing atelectasis. Garo Stinson MD Objective Remarks GENERAL: This is a well-nourished, well-developed patient, in no apparent distress. SKIN: No rashes, ecchymoses or lesions. Cool and dry. CARDIOVASCULAR: Regular rate and rhythm without murmurs, gallops, or rubs. RESPIRATORY: Clear to auscultation. Breath sounds equal bilaterally. No wheezes , rales, or rhonchi. GASTROINTESTINAL: Abdomen soft, non-tender, nondistended. No guarding. MUSCULOSKELETAL: Extremities without clubbing, cyanosis, or edema. No joint tenderness, effusion, or edema noted. No calf tenderness. Negative Homans sign bilaterally. NEUROLOGICAL: Awake but confused. Cranial nerves II through XII intact. Motor and sensory grossly within normal limits. Five out of 5 muscle strength in all muscle groups. Normal speech. Procedures none A/P Problem List: (1) Impaired mobility ICD Code: Z74.09 - Impaired mobility Status: Acute (2) Urinary tract infection ICD Code: N39.0 - Urinary tract infection Status: Acute Assessment and Plan Worsening weakness/ impaired mobility with recent falls with history of Parkinson's disease. Continue PT recommends inpatient rehabilitation. Consult case management. Neurology following. Recent fall with L1 fracture/ s/p Kyphoplasty. To continue with pain control- PT evaluation as noted above. Sepsis with UTI; continue with IV Rocephin; follow the cultures growing gram- negative sudeep and adjust the antibiotic regimen accordingly. Constipation; will continue bowel regimen DVT prophylaxis with SCD's, early ambulation. Consider pharmacological prophylaxis if okay with neurology Discharge Planning Needs rehabilitation Problem Qualifiers (1) Urinary tract infection: Abdelrahman Cross MD Nov 18, 2017 11:23
--- NOTE | 2017-11-18 12:57 | RADRPT ---
EXAM DATE/TIME: 11/18/2017 11:44 [facility] COMPARISON: No previous studies available for comparison. INDICATIONS : Neck pain. MEDICAL HISTORY : Parkinson's. SURGICAL HISTORY : Kyphoplasty. D&C ENCOUNTER: Subsequent ACUITY: 2 day PAIN SCORE: 2/10 LOCATION: neck TECHNIQUE: Multiplanar, multisequence MRI examination of the cervical spine was performed. FINDINGS: VERTEBRAE: Normal vertebral body height. Minimal focal increased signal within C4 probably hemangioma. Cerebellar tonsils are in position. ALIGNMENT: No evidence of subluxation. CORD: Normal configuration and signal. POST FOSSA: The cerebellar tonsils are normal in position. C2-C3: The thecal sac has a normal configuration. There is no evidence of disc herniation or spinal canal s tenosis. The neural foramina are patent bilaterally. C3-C4: The thecal sac has a normal configuration. There is no evidence of disc herniation or spinal canal s tenosis. The neural foramina are patent bilaterally. C4-C5: Very minimal uncinate ridging without stenosis. C5-C6: Minimal uncinate ridging without stenosis. C6-C7: The thecal sac has a normal configuration. There is no evidence of disc herniation or spinal canal s tenosis. The neural foramina are patent bilaterally. C7-T1: The thecal sac has a normal configuration. There is no evidence of disc herniation or spinal canal s tenosis. The neural foramina are patent bilaterally. CONCLUSION: Normal degenerative changes as described above. I do not see an etiology for the patient's neck pain .. Ac Tapia MD FACR on November 18, 2017 at 12:54 Board Certified Radiologist. This report was verified electronically.
[2017-11-18] MEDS: LORazepam 0.5 MG TAB PO PRN ×2 (16:16→23:34)
[2017-11-18 16:44] VITALS: BP_SYST 130; BP_SYST 136; BP_DIAS 67; BP_DIAS 68; PULSE 84; RESP 20; TEMP 98.2; O2SAT 95
[2017-11-19 00:37] VITALS: BP 141/78; PULSE 78; RESP 18; TEMP 98.4; O2SAT 97
[2017-11-19 04:00] VITALS: BP 146/78; PULSE 74; RESP 18; TEMP 98; O2SAT 97
[2017-11-19] MEDS: CARBIDOPA/LEVODOPA 25 MG/100 MG TAB PO SCH ×3 (08:00→18:43)
[2017-11-19 08:32] VITALS: BP 140/60; PULSE 72; RESP 18; TEMP 98.2; O2SAT 96
[2017-11-19 08:34] LABS: AUTOMATED NEUTROPHIL # 11.6 TH/MM3 (1.8-7.7); BASOPHIL % 0.2 % (0.0-2.0); EOSINOPHIL # 0.1 TH/MM3 (0-0.4); EOSINOPHIL % 0.7 % (0.0-4.0); HEMATOCRIT 43.7 % (35.0-46.0); LYMPH % 15.8 % (9.0-44.0); LYMPHOCYTE # 2.5 TH/MM3 (1.0-4.8); MEAN CELL VOLUME 88.5 FL (80.0-100.0); MEAN CORPUSCULAR HEMOGLOBIN 30.4 PG (27.0-34.0); MEAN CORPUSCULAR HGB CONC 34.4 % (32.0-36.0); MEAN PLATELET VOLUME 7.9 FL (7.0-11.0); MONO % 9.4 % (0.0-8.0); MONOCYTE # 1.5 TH/MM3 (0-0.9); NEUT % 73.9 % (16.0-70.0); PLATELET COUNT 374 TH/MM3 (150-450); RED BLOOD COUNT 4.93 MIL/MM3 (4.00-5.30); RED CELL DISTRIBUTION WIDTH 13.4 % (11.6-17.2); WHITE BLOOD COUNT 15.7 TH/MM3 (4.0-11.0)
[2017-11-19 08:58] LABS: BICARBONATE 20.6 MEQ/L (21.0-32.0); CALCIUM 9.4 MG/DL (8.5-10.1); CREATININE 0.86 MG/DL (0.50-1.00); MAGNESIUM 2.2 MG/DL (1.5-2.5)
[2017-11-19] MEDS: OXYBUTYNIN CHLORIDE 5 MG TAB PO SCH ×2 (09:00→20:52)
--- NOTE | 2017-11-19 10:58 | HHI.PR ---
Subjective Remarks Follow-up encephalopathy and UTI. According to caregiver, she is improving but currently agitated. Discussed with RN, patient's family refusing retirement facility Objective Vitals Vital Signs Date Time Temp Pulse Resp B/P (MAP) Pulse Ox O2 Delivery O2 Flow Rate FiO2 11/19/17 08:32 98.2 72 18 140/60 (86) 96 11/19/17 04:00 98.0 74 18 146/78 (100) 97 11/19/17 00:37 98.4 78 18 141/78 (99) 97 11/18/17 16:44 98.2 84 20 130/68 (88) 95 135/70 (91) 136/67 (90) I/O 11/18/17 11/18/17 11/18/17 11/19/17 11/19/17 11/19/17 07:00 15:00 23:00 07:00 15:00 23:00 Intake Total 240 ml 280 ml Balance 240 ml 280 ml Intake Oral 140 ml 280 ml IV Total 100 ml # Voids 1 2 Result Diagram: 11/19/17 0744 11/19/17 0744 Imaging Last Impressions Cervical Spine MRI 11/18/17 0000 Signed Impressions: Service Date/Time: Saturday, November 18, 2017 11:44 - CONCLUSION: Normal degenerative changes as described above. I do not see an etiology for the patient's neck pain.. Ac Tapia MD FACR Brain MRI 11/17/17 1503 Signed Impressions: Service Date/Time: October 18:30 - CONCLUSION: No acute abnormality demonstrated. Derek Nam MD Chest X-Ray 11/17/17 0909 Signed Impressions: Service Date/Time: October 09:32 - CONCLUSION: Mild patchy bilateral lower lung zone opacity likely representing atelectasis. Garo Stinson MD Objective Remarks GENERAL: This is a well-nourished, well-developed patient, in no apparent distress. SKIN: No rashes, ecchymoses or lesions. Cool and dry. CARDIOVASCULAR: Regular rate and rhythm without murmurs, gallops, or rubs. RESPIRATORY: Clear to auscultation. Breath sounds equal bilaterally. No wheezes , rales, or rhonchi. GASTROINTESTINAL: Abdomen soft, non-tender, nondistended. No guarding. MUSCULOSKELETAL: Extremities without clubbing, cyanosis, or edema. No joint tenderness, effusion, or edema noted. No calf tenderness. Negative Homans sign bilaterally. NEUROLOGICAL: Awake but confused. Cranial nerves II through XII intact. Motor and sensory grossly within normal limits. Five out of 5 muscle strength in all muscle groups. Procedures none A/P Problem List: (1) Impaired mobility ICD Code: Z74.09 - Impaired mobility Status: Acute (2) Urinary tract infection ICD Code: N39.0 - Urinary tract infection Status: Acute Assessment and Plan Worsening weakness/ impaired mobility with recent falls with history of Parkinson's disease. Cervical spine CT MRI with no acute findings. Continue PT recommends inpatient rehabilitation. Consult case management. Neurology following. Recent fall with L1 fracture/ s/p Kyphoplasty. Stable. To continue with pain control- PT evaluation as noted above. Sepsis with UTI; culture with Escherichia coli continue with antimicrobial Leukocytosis slightly worse. Repeat CBC in the morning Constipation; will continue bowel regimen DVT prophylaxis with SCD's, early ambulation. Subcutaneous heparin Discharge Planning Discharge in the morning if improved leukocytosis. Refusing rehabilitation Problem Qualifiers (1) Urinary tract infection: Abdelrahman Cross MD Nov 19, 2017 10:58
[2017-11-19] MEDS: POLYETHYLENE GLYCOL 17 GM PKG PO SCH (11:38)
[2017-11-19] MEDS: TRIHEXYPHENIDYL HCL 2 MG TAB PO SCH ×2 (11:39→20:52)
[2017-11-19] MEDS: PYRIDOXINE HCL 50 MG TAB PO SCH (11:39)
[2017-11-19] MEDS: DOCUSATE SODIUM 50 MG/SENNA 8.6 MG TAB PO SCH ×2 (11:40→20:52)
[2017-11-19] MEDS: ESCITALOPRAM OXALATE 10 MG TAB PO SCH (11:40)
[2017-11-19] MEDS: MULTIVITAMIN TAB PO SCH (11:41)
[2017-11-19] MEDS: cefTRIAXone INJ 1,000 MG in SODIUM CHLORIDE 0.9% INJ 100 ML IV SCH (12:00)
[2017-11-19 12:53] VITALS: BP 101/56; PULSE 68; RESP 20; TEMP 97.9; O2SAT 95
[2017-11-19] MEDS: LORazepam 0.5 MG TAB PO PRN ×2 (13:30→23:27)
[2017-11-19 15:59] VITALS: BP 110/48; PULSE 62; RESP 18; TEMP 98.2; O2SAT 96
[2017-11-19 20:38] VITALS: BP 108/55; PULSE 78; RESP 18; TEMP 98.4; O2SAT 95
[2017-11-19] MEDS: HEPARIN SODIUM - SQ 10,000 UNITS/ML VIAL SQ SCH (20:52)
[2017-11-20 04:00] VITALS: BP 144/71; PULSE 74; RESP 18; TEMP 97.9; O2SAT 96
[2017-11-20] MEDS: LORazepam 0.5 MG TAB PO PRN (05:46)
[2017-11-20 08:46] LABS: AUTOMATED NEUTROPHIL # 10.2 TH/MM3 (1.8-7.7); BASOPHIL # 0.1 TH/MM3 (0-0.2); BASOPHIL % 0.5 % (0.0-2.0); EOSINOPHIL # 0.1 TH/MM3 (0-0.4); EOSINOPHIL % 0.6 % (0.0-4.0); HEMATOCRIT 41.9 % (35.0-46.0); HEMOGLOBIN 14.3 GM/DL (11.6-15.3); LYMPH % 15.4 % (9.0-44.0); LYMPHOCYTE # 2.1 TH/MM3 (1.0-4.8); MEAN CELL VOLUME 89.6 FL (80.0-100.0); MEAN CORPUSCULAR HEMOGLOBIN 30.5 PG (27.0-34.0); MEAN CORPUSCULAR HGB CONC 34.1 % (32.0-36.0); MEAN PLATELET VOLUME 7.9 FL (7.0-11.0); MONO % 7.8 % (0.0-8.0); MONOCYTE # 1.1 TH/MM3 (0-0.9); NEUT % 75.7 % (16.0-70.0); PLATELET COUNT 342 TH/MM3 (150-450); RED BLOOD COUNT 4.67 MIL/MM3 (4.00-5.30); RED CELL DISTRIBUTION WIDTH 13.7 % (11.6-17.2); WHITE BLOOD COUNT 13.5 TH/MM3 (4.0-11.0)
[2017-11-20] MEDS: POLYETHYLENE GLYCOL 17 GM PKG PO SCH (09:19)
[2017-11-20] MEDS: MULTIVITAMIN TAB PO SCH (09:20)
[2017-11-20] MEDS: TRIHEXYPHENIDYL HCL 2 MG TAB PO SCH (09:20)
[2017-11-20] MEDS: OXYBUTYNIN CHLORIDE 5 MG TAB PO SCH (09:21)
[2017-11-20] MEDS: ESCITALOPRAM OXALATE 10 MG TAB PO SCH (09:21)
[2017-11-20] MEDS: DOCUSATE SODIUM 50 MG/SENNA 8.6 MG TAB PO SCH (09:21)
[2017-11-20] MEDS: PYRIDOXINE HCL 50 MG TAB PO SCH (09:21)
[2017-11-20] MEDS: HEPARIN SODIUM - SQ 10,000 UNITS/ML VIAL SQ SCH (09:22)
[2017-11-20] MEDS: CARBIDOPA/LEVODOPA 25 MG/100 MG TAB PO SCH ×2 (09:25→12:41)
--- NOTE | 2017-11-20 10:36 | HHI.DS ---
Discharge Summary Admission Date Nov 17, 2017 at 11:01 Discharge Date: Nov 20, 2017 Admitting Diagnosis uti, dehydration, worsening tremors (1) Impaired mobility ICD Code: Z74.09 - Impaired mobility Diagnosis: Principal Status: Acute (2) Urinary tract infection ICD Code: N39.0 - Urinary tract infection Diagnosis: Principal Status: Acute Procedures none Brief History - From Admission patient is a 82 y/o female with history of recent fall- with L1 fracture- s/p Kyphoplasty about a week ago, with history of Parkinson's disease who was brought to ER with fever. the patient is not a good historian and most of the information was obtained from the ER document and the patient's daughters at the bedside. the family said that she was doing fairly fine on the days of discharge a few days ago after she had her Kyphoplasty. however she had constipation at the time which didn't resolve till yesterday when the family had to do the disimpaction.there's a report of fever spike at home. since the time of discharge she's been feeling weaker and the family noticed on and off confusional episodes which they relate to her medical regimen. the family said that it seems that her weakness has been getting worse and a couple of falls recently- she was referred to however she missed the appointment because of the fall.her back pain at the time of my evaluation was mild. she denies any abdominal pain or nausea. she was afebrile at the time of presentation to ER.the family said that she was on hospice for less than a day and that service was discontinued. CBC/BMP: 11/20/17 0812 11/19/17 0744 Significant Findings Laboratory Tests Test 11/18/17 06:35 11/19/17 07:44 11/20/17 08:12 White Blood Count 13.7 TH/MM3 (4.0-11.0) 15.7 TH/MM3 (4.0-11.0) 13.5 TH/MM3 (4.0-11.0) Monocytes (%) (Auto) 9.7 % (0.0-8.0) 9.4 % (0.0-8.0) Neutrophils # (Auto) 9.5 TH/MM3 (1.8-7.7) 11.6 TH/MM3 (1.8-7.7) 10.2 TH/MM3 (1.8-7.7) Monocytes # (Auto) 1.3 TH/MM3 (0-0.9) 1.5 TH/MM3 (0-0.9) 1.1 TH/MM3 (0-0.9) Potassium Level 3.3 MEQ/L (3.5-5.1) Neutrophils (%) (Auto) 73.9 % (16.0-70.0) 75.7 % (16.0-70.0) Random Glucose 116 MG/DL (74-106) Sodium Level 135 MEQ/L (136-145) Carbon Dioxide Level 20.6 MEQ/L (21.0-32.0) Estimat Glomerular Filtration Rate 63 ML/MIN (>89) Imaging Last Impressions Cervical Spine MRI 11/18/17 0000 Signed Impressions: Service Date/Time: Saturday, November 18, 2017 11:44 - CONCLUSION: Normal degenerative changes as described above. I do not see an etiology for the patient's neck pain.. Ac Tapia MD FACR Brain MRI 11/17/17 1503 Signed Impressions: Service Date/Time: October 18:30 - CONCLUSION: No acute abnormality demonstrated. Derek Nam MD Chest X-Ray 11/17/17 0909 Signed Impressions: Service Date/Time: October 09:32 - CONCLUSION: Mild patchy bilateral lower lung zone opacity likely representing atelectasis. Garo Stinson MD PE at Discharge GENERAL: This is a well-nourished, well-developed patient, in no apparent distress. SKIN: No rashes, ecchymoses or lesions. Cool and dry. CARDIOVASCULAR: Regular rate and rhythm without murmurs, gallops, or rubs. RESPIRATORY: Clear to auscultation. Breath sounds equal bilaterally. No wheezes , rales, or rhonchi. GASTROINTESTINAL: Abdomen soft, non-tender, nondistended. No guarding. MUSCULOSKELETAL: Extremities without clubbing, cyanosis, or edema. No joint tenderness, effusion, or edema noted. No calf tenderness. Negative Homans sign bilaterally. NEUROLOGICAL: Awake but confused. Cranial nerves II through XII intact. Motor and sensory grossly within normal limits. Five out of 5 muscle strength in all muscle groups. Hospital Course Worsening weakness/ impaired mobility with recent falls with history of Parkinson's disease. Cervical spine CT MRI with no acute findings. Continue PT recommends inpatient rehabilitation but the family and patient refused. Consulted case management. Neurology following. She requires frequent changes in body positions. Also requires head of bed elevated Recent fall with L1 fracture/ s/p Kyphoplasty. Stable. To continue with pain control- PT evaluation as noted above. Sepsis with UTI; culture with Escherichia coli stable status post Rocephin Leukocytosis slightly worse from steroids. Improving Constipation; will continue bowel regimen DVT prophylaxis with SCD's, early ambulation. Subcutaneous heparin Pt Condition on Discharge: Stable Discharge Disposition: Disch w/ Home Health Serv Discharge Time: > 30 minutes Discharge Instructions DIET: Follow Instructions for: Heart Healthy Diet Activities you can perform: Regular-No Restrictions Activities to Avoid: Driving Follow up Referrals: PCP Follow-up - 1 Week Continued Medications: Furosemide (Furosemide) 20 Mg Tab 20 MG PO DAILY, #30 TAB 0 Refills Lorazepam (Lorazepam) 0.5 Mg Tab 0.5 MG PO DAILY PRN for ANXIETY, TAB 0 Refills Oxybutynin (Ditropan) 5 Mg Tab 5 MG PO Q12HR for Urinary Symptom Managemen, #60 TAB 0 Refills Oxycodone HCl/Acetaminophen (Oxycodone-Acetaminophen 10-325) 10 Mg-325 Mg Tablet 1 TAB PO Q6H PRN for PAIN SCALE 6 TO 10, #20 Trihexyphenidyl (Trihexyphenidyl) 2 Mg Tab 2 MG PO BID for Parkinson Disease Mgmt, #60 TAB 0 Refills Discontinued Medications: Dexamethasone (Dexamethasone) 4 Mg Tab 4 MG PO BID, #60 TAB 0 Refills Abdelrahman Cross MD Nov 20, 2017 10:36
[2017-11-20] MEDS ORDERED: ACETAMINOPHEN 325 MG TAB PO PRN (10:45)
--- NOTE | 2017-11-20 10:48 | HHI.FF ---
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 My clinical findings support the need for the requested home health care services because: Ltd mobility - disease progression Deconditioned w/ increased weakness Limited ability to care for self Impaired cognition/judgement I certify that my clinical findings support that this patient is homebound because: Impaired cognitive ability/safety Unsteady gait/balance Unsafe to leave home unassisted Unable to use public transportation Michelle Noriega PA-C Nov 20, 2017 10:48
[2017-11-20] MEDS ORDERED: ACETAMINOPHEN 325 MG TAB PO ONE (11:00)
--- NOTE | 2017-11-20 12:27 | HHI.PR ---
Review/Management Daily Summary 11/20 spokewith family last evening as she was asleep this am she was awake and akert milton tiwariht hand parkinsonian tremor doing much better overall ok neuro to d/c and follow as outpt dr Browning Subjective Subjective Comments no cx but poor sleep Active Medications Current Medications Medications (Trade) Dose Ordered Sig/Guillermo Route Start Time Stop Time Status Last Admin (Zofran Inj) 4 mg Q8HR PRN IV PUSH 11/17/17 13:00 (Milk Of Magnesia Liq) 30 ml DAILY PRN PO 11/17/17 13:00 11/17/17 22:08 (Ditropan) 5 mg Q12HR PO 11/17/17 21:00 11/20/17 09:21 (Artane) 2 mg BID PO 11/17/17 21:00 11/20/17 09:20 (Vitamin B6) 50 mg DAILY PO 11/17/17 15:15 11/20/17 09:21 (Sinemet 25-100 Mg) 1 tab TID@0800,1200,1600 PO 11/17/17 16:00 11/20/17 09:25 (Theragran) 1 tab DAILY PO 11/18/17 09:00 11/20/17 09:20 (Lexapro) 10 mg DAILY PO 11/18/17 09:00 11/20/17 09:21 (Ativan) 0.5 mg Q6H PRN PO 11/18/17 10:00 11/20/17 05:46 (Devi-Colace) 2 tab BID PO 11/18/17 11:00 11/20/17 09:21 (Senokot) 17.2 mg Q12H PRN PO 11/18/17 10:00 (Miralax) 17 gm DAILY PO 11/18/17 10:00 11/20/17 09:19 (Heparin Inj) 5,000 units Q12HR SQ 11/19/17 21:00 11/20/17 09:22 (Tylenol) 650 mg Q4H PRN PO 11/20/17 10:45 Allergies Allergies Coded Allergies *MDRO Multi-Drug Resistant Organism (Verified Adverse Reaction, Unknown, ) Exam I&O / VS Vital Signs Date Time Temp Pulse Resp B/P (MAP) Pulse Ox O2 Delivery O2 Flow Rate FiO2 11/20/17 04:00 97.9 74 18 144/71 (95) 96 11/19/17 20:38 98.4 78 18 108/55 (72) 95 11/19/17 16:34 20 11/19/17 15:59 98.2 62 18 110/48 (68) 96 11/19/17 12:53 97.9 68 20 101/56 (71) 95 Respiratory: Lungs CTA, Non-labored respirations, Symmetrical expansion Cardiology: Normal rate, Regular Rhythm, Other Objective Micro and Labs Laboratory Tests Test 11/20/17 08:12 White Blood Count 13.5 Red Blood Count 4.67 Hemoglobin 14.3 Hematocrit 41.9 Mean Corpuscular Volume 89.6 Mean Corpuscular Hemoglobin 30.5 Mean Corpuscular Hemoglobin Concent 34.1 Red Cell Distribution Width 13.7 Platelet Count 342 Mean Platelet Volume 7.9 Neutrophils (%) (Auto) 75.7 Lymphocytes (%) (Auto) 15.4 Monocytes (%) (Auto) 7.8 Eosinophils (%) (Auto) 0.6 Basophils (%) (Auto) 0.5 Neutrophils # (Auto) 10.2 Lymphocytes # (Auto) 2.1 Monocytes # (Auto) 1.1 Eosinophils # (Auto) 0.1 Basophils # (Auto) 0.1 CBC Comment AUTO DIFF Differential Comment AUTO DIFF CONFIRMED Platelet Estimate NORMAL Platelet Morphology Comment NORMAL Red Cell Morphology Comment NORMAL Date/Time Source Procedure Growth Status 11/17/17 09:05 Blood Peripheral Aerobic Blood Culture - Preliminary NO GROWTH IN 3 DAYS Resulted 11/17/17 09:05 Blood Peripheral Anaerobic Blood Culture - Preliminary NO GROWTH IN 3 DAYS Resulted 11/17/17 12:11 Nasal Aspirate Influenza Types A,B Antigen ([facility]) - Final NEGATIVE FOR FLU A AND B ANTIGEN.... Complete 11/17/17 09:27 Urine Catheterized Urine Urine Culture - Final Escherichia Coli Complete Hernandez Buirtago MD Nov 20, 2017 12:27
== END 2017-11-20 13:39 | disposition home health service (06) | DRG 871 ==
LOC: NEPE 08:49 → NEDA 11:01 → NEPGCP 14:31 → OBSVTOIN 11-18 17:11
PROVIDERS: ADMIT Internal Medicine; ATTEND Internal Medicine
DX: A41.9 Sepsis, unspecified organism (principal); G93.40 Encephalopathy, unspecified; G20 Parkinson's disease; N39.0 Urinary tract infection, site not specified; B96.20 Unspecified Escherichia coli [E. coli] as the cause of diseases classified elsewhere; E86.0 Dehydration; R26.9 Unspecified abnormalities of gait and mobility; R29.6 Repeated falls; K59.00 Constipation, unspecified; F41.9 Anxiety disorder, unspecified; S32.019D Unspecified fracture of first lumbar vertebra, subsequent encounter for fracture with routine healing
CPT/HCPCS: 70551; 71045; 72141; 80048; 80053; 81001; 83605; 83735; 85025; 87040; 87077; 87086; 87186; 87804; 93005; 96361; 96365; 96366; 96375; 96376; G0378; G8987-GP; G8988-GP; J0696; J1644; J2060; J7030; P9612

== ENCOUNTER 2017-11-25 14:19 | Day surgery (SDC) | payer MEDICARE, OTHER ==
[~2017-11-25 14:19] MED LIST changes: +FURO20TA PO; -HOSP BED1; -LACT10SO PO; -LORA-392 PO; +LORA0.5T PO; +OXYB5TAB8 PO
--- NOTE | 2017-11-25 16:03 | RADRPT ---
EXAM DATE/TIME: 11/25/2017 00:00 [facility] COMPARISON : INDICATIONS : FOLLOW UP OBJECTIVE: Temperature: 97.6 Heart Rate: 69 Blood Pressure: 112/69 Respiratory: 20 Oximetry: 92 HISTORY OF PRESENT ILLNESS: The patient is 2 weeks status post L1 kyphoplasty. The patient reports significant reduction in pain relative to the preoperative exam. Her pain was 10 out 10 prior to the procedure and is now 2/10. She denies any issues. PHYSICAL EXAMINATION: General: Patient is in no acute distress. Musculoskeletal: The access site to heal nicely. No erythema or ecchymosis. ASSESSMENT: Patient is doing well status post L1 kyphoplasty. PLAN: Follow up p.r.n. TIME SPENT: 15 minutes Rojas Licea Jr., MD on November 25, 2017 at 15:48 Board Certified Radiologist. This report was verified electronically.
== END 2017-11-25 15:00 | disposition home or self-care (01) ==
LOC: HROP 14:19 → HRIP 14:21 → HROP 15:00
PROVIDERS: ATTEND Radiology Body Imaging
DX: S32.010D Wedge compression fracture of first lumbar vertebra, subsequent encounter for fracture with routine healing (principal); W19.XXXD Unspecified fall, subsequent encounter; Z91.81 History of falling